=== PATIENT | female | born 2005 | race Two or more races ===

== ENCOUNTER 2024-10-08 20:05 | Observation (INO) | payer MEDICAID, SELFPAY ==
[2024-10-08 20:14] VITALS: BP 135/69; PULSE 85; RESP 18; RESP 98; TEMP 37
[2024-10-08 20:17] VITALS: TEMP 37; BMI 35.8
[2024-10-08 20:54] LABS: ROM Kit Lot # 57807112
[2024-10-08 20:55] LABS: ROM Swab Mixed By: DAVIH1; Rupture of Fetal Membranes Negative (Negative); Swb Mxed in Solvent 1 min? Yes
== END 2024-10-08 21:03 | disposition home or self-care (01) ==
PROVIDERS: Admitting Provider Obstetrics & Gynecology; PCP Family Medicine; Visit Provider Obstetrics & Gynecology
DX: Z34.83 Encounter for supervision of other normal pregnancy, third trimester (principal); Z3A.30 30 weeks gestation of pregnancy
CPT/HCPCS: 59899; 84112

== ENCOUNTER 2024-11-02 09:34 | Outpatient (CLI) | payer MEDICAID, SELFPAY ==
[2024-11-02] VITALS (37 sets, daily range): BP systolic 120–144; BP diastolic 77–99; PULSE 70–102; RESP 18–98; TEMP 36.8; O2SAT 94–100; BMI 37.0
[2024-11-02 10:53] LABS: Collection Type, Urine Clean Catch; RBC,Urine 0 /hpf (0-3)
[2024-11-02 11:00] LABS: Basophils % (Auto) 0 % (0-2.5); Eosinophils # (Auto) 0.3 Thou/mm3 (0.0-0.5); Eosinophils % (Auto) 5 % (0-10); Hematocrit 30.5 % (36.0-46.0); Hemoglobin 10.4 g/dL (12.0-16.0); Immature Granulocytes % (Auto) 1 % (0-0); Immature Granulocytes Auto 0.07 Thou/mm3 (0.00-0.00); Lymphocytes # (Auto) 1.4 Thou/mm3 (1.0-4.8); Lymphocytes % (Auto) 24 % (10-50); Mean Corpuscular HGB Conc 34.1 g/dl (31.0-37.0); Mean Corpuscular Hemoglobin 26.6 pg (25.0-35.0); Mean Corpuscular Volume 78 fL (80-100); Monocytes # (Auto) 0.4 Thou/mm3 (0.0-0.8); Monocytes % (Auto) 7 % (0-12); Neutrophils # (Auto) 3.8 Thou/mm3 (1.8-7.7); Neutrophils % (Auto) 62 % (37-80); Nucleated Red Blood Cell % 0 /100 WBC (0); Platelet Count 140 Thou/mm3 (140-440); RDW Standard Deviation 40.6 fL (36.4-46.3); Red Blood Count 3.91 Miln/mm3 (4.00-5.20)
[2024-11-02 11:07] LABS: Bacteria,Urine Rare; Bilirubin,Urine Negative (Negative); Blood,Urine Negative (Negative); Clarity,Urine Turbid (Clear/Hazy); Color,Urine Yellow (Lt Yel-Yel); Glucose, Urine Negative (Negative); Ketones,Urine Negative (Negative); Leukocyte Esterase,Urine Positive (Negative); Nitrite,Urine Negative (Negative); PH,Urine 6.5 (5.0-7.0); Protein,Urine Negative (Neg - Trace); Specific Gravity,Urine 1.016 (1.001-1.035); Squamous Epithelial Cell,Urine 33 /hpf (0-5); Urobilinogen,Urine Negative mg/dL (0.0-1.0); WBC,Urine 7 /hpf (0-5)
[2024-11-02 11:15] LABS: Alanine Aminotransferase < 7 U/L (10-49); Albumin, Serum 3.7 gm/dL (3.5-5.0); Albumin/Globulin Ratio 1.4 (1.2-2.2); Alkaline Phosphatase 101 U/L (46-116); Anion Gap 6 (7-16); Aspartate Amino Transferase 10 U/L (0-34); BUN/Creatinine Ratio 12 Ratio (12-20); Bilirubin,Total 0.3 mg/dL (0.3-1.2); Blood Urea Nitrogen 6 mg/dL (9-23); Calcium 9.1 mg/dL (8.3-10.6); Calcium (Corrected) 9.3 mg/dL (8.5-10.1); Chloride 107 mMol/L (98-107); Creatinine (Component) 0.5 mg/dL (0.6-1.3); Estimated Creatinine Clearance 202.3 mL/min (>60); Fibrinogen 470 mg/dL (175-375); Globulin 2.6 gm/dL (2.3-3.5); Glucose 107 mg/dL (74-106); Osmolality,Calculated 269 (275-295); Partial Thromboplastin Time 29.1 Seconds (22.0-36.0); Potassium 3.6 mMol/L (3.4-5.1); Prothrombin Time 11.1 Seconds (9.0-12.2); Sodium 136 mMol/L (136-145); Total Protein 6.3 gm/dL (5.7-8.2); eGFR > 60 See Note
[2024-11-02 11:16] LABS: Creatinine,Random Urine 62 mg/dL (30-125); Protein Total, Random Urine 18 mg/dL (1-14)
== END 2024-11-02 12:04 | disposition home or self-care (01) ==
LOC: S4S1 09:37 → S4SX 09:37
PROVIDERS: Referring Provider Student in an Organized Health Care Education/Training Program; Visit Provider Student in an Organized Health Care Education/Training Program
DX: O26.893 Other specified pregnancy related conditions, third trimester (principal); R03.0 Elevated blood-pressure reading, without diagnosis of hypertension; Z3A.33 33 weeks gestation of pregnancy
CPT/HCPCS: 36415; 59025; 80053; 81001; 82570; 84156; 84550; 85025; 85384; 85610; 85730

== ENCOUNTER 2024-11-09 09:07 | Outpatient (CLI) | payer MEDICAID, SELFPAY ==
[2024-11-09] VITALS (29 sets, daily range): BP systolic 127–140; BP diastolic 81–95; PULSE 72–108; RESP 20–98; TEMP 36.8; O2SAT 97–100; BMI 37.5
[2024-11-09 09:50] LABS: Collection Type, Urine Clean Catch
[2024-11-09 09:58] LABS: Bacteria,Urine Rare; Bilirubin,Urine Negative (Negative); Blood,Urine Negative (Negative); Color,Urine Lt-Yellow (Lt Yel-Yel); Glucose, Urine Negative (Negative); Hyaline Casts,Urine < 1 /hpf (0-1); Ketones,Urine Negative (Negative); Leukocyte Esterase,Urine Positive (Negative); Nitrite,Urine Negative (Negative); Protein,Urine Negative (Neg - Trace); RBC,Urine 6 /hpf (0-3); Specific Gravity,Urine 1.006 (1.001-1.035); Squamous Epithelial Cell,Urine 48 /hpf (0-5); Urobilinogen,Urine Negative mg/dL (0.0-1.0); WBC,Urine 15 /hpf (0-5)
[2024-11-09 10:14] LABS: Clarity,Urine Hazy (Clear/Hazy)
[2024-11-09 10:30] LABS: Basophils % (Auto) 1 % (0-2.5); Eosinophils # (Auto) 0.4 Thou/mm3 (0.0-0.5); Eosinophils % (Auto) 6 % (0-10); Hematocrit 28.8 % (36.0-46.0); Hemoglobin 10.1 g/dL (12.0-16.0); Immature Granulocytes % (Auto) 2 % (0-0); Immature Granulocytes Auto 0.13 Thou/mm3 (0.00-0.00); Lymphocytes # (Auto) 1.4 Thou/mm3 (1.0-4.8); Lymphocytes % (Auto) 21 % (10-50); Mean Corpuscular HGB Conc 35.1 g/dl (31.0-37.0); Mean Corpuscular Hemoglobin 26.9 pg (25.0-35.0); Mean Corpuscular Volume 77 fL (80-100); Monocytes # (Auto) 0.5 Thou/mm3 (0.0-0.8); Monocytes % (Auto) 8 % (0-12); Neutrophils # (Auto) 4.1 Thou/mm3 (1.8-7.7); Neutrophils % (Auto) 63 % (37-80); Nucleated Red Blood Cell % 0 /100 WBC (0); Platelet Count 143 Thou/mm3 (140-440); Red Blood Count 3.76 Miln/mm3 (4.00-5.20); White Blood Count 6.5 Thou/mm3 (3.6-11.0)
[2024-11-09 10:47] LABS: Fibrinogen 462 mg/dL (175-375); Partial Thromboplastin Time 29.3 Seconds (22.0-36.0); Prothrombin Time 10.9 Seconds (9.0-12.2)
[2024-11-09 11:05] LABS: Alanine Aminotransferase < 7 U/L (10-49); Albumin, Serum 3.7 gm/dL (3.5-5.0); Albumin/Globulin Ratio 1.5 (1.2-2.2); Alkaline Phosphatase 114 U/L (46-116); Anion Gap 10 (7-16); Aspartate Amino Transferase 10 U/L (0-34); BUN/Creatinine Ratio 15 Ratio (12-20); Bilirubin,Total 0.3 mg/dL (0.3-1.2); Blood Urea Nitrogen 6 mg/dL (9-23); Calcium 8.6 mg/dL (8.3-10.6); Calcium (Corrected) 8.8 mg/dL (8.5-10.1); Carbon Dioxide 21.7 mMol/L (20.0-31.0); Chloride 109 mMol/L (98-107); Creatinine (Component) 0.4 mg/dL (0.6-1.3); Estimated Creatinine Clearance 254.8 mL/min (>60); Globulin 2.4 gm/dL (2.3-3.5); Glucose 114 mg/dL (74-106); LDH (Lactate Dehydrogenase) 135 U/L (120-246); Osmolality,Calculated 279 (275-295); Potassium 3.8 mMol/L (3.4-5.1); Sodium 141 mMol/L (136-145); Total Protein 6.1 gm/dL (5.7-8.2); Uric Acid 3.6 mg/dL (3.1-7.8); eGFR > 60 See Note
[2024-11-09] MEDS: LABETALOL 100 MG TABLET 200 MG PO (11:29)
[2024-11-09 11:32] LABS: Creatinine,Random Urine 22 mg/dL (30-125); Protein Total, Random Urine 15 mg/dL (1-14)
== END 2024-11-09 11:30 | disposition home or self-care (01) ==
LOC: S4S1 09:08 → S4SX 09:08
PROVIDERS: Referring Provider Student in an Organized Health Care Education/Training Program; Visit Provider Student in an Organized Health Care Education/Training Program
DX: Z34.83 Encounter for supervision of other normal pregnancy, third trimester (principal); Z36.89 Encounter for other specified antenatal screening; Z3A.34 34 weeks gestation of pregnancy
CPT/HCPCS: 36415; 59025; 80053; 81001; 82570; 83615; 84156; 84550; 85025; 85384; 85610; 85730; A9270

== ENCOUNTER 2024-11-25 15:46 | Outpatient (CLI) | payer MEDICAID, SELFPAY ==
[2024-11-25] VITALS (22 sets, daily range): BP systolic 123–139; BP diastolic 69–74; PULSE 84–104; RESP 20–96; TEMP 36.9; O2SAT 96–98; BMI 37.4
--- NOTE | 2024-11-25 15:57 | XR_ITS ---
Examination: Biophysical profile, ultrasound Date and time of exam: November 26, 2023, 1626 hours INDICATIONS: Diagnosis gestational hypertension Technique: Multiple transabdominal sonographic images of the pelvis abdomen obtained. Attention is directed to the breathing movement, gross body movement, amniotic fluid volume and tone. Findings: Amniotic fluid index 9.9 cm Total biophysical profile is 8 of 8. breathing movement is 2. Gross body movement is 2. tone is 2. Qualitative amniotic fluid volume is 2 Impression: Biophysical profile is 8 of 8.
== END 2024-11-25 17:45 | disposition home or self-care (01) ==
LOC: S4S1 15:47 → S4SX 15:48
PROVIDERS: Referring Provider Obstetrics & Gynecology; Visit Provider Obstetrics & Gynecology
DX: Z34.83 Encounter for supervision of other normal pregnancy, third trimester (principal); Z36.9 Encounter for antenatal screening, unspecified; Z3A.37 37 weeks gestation of pregnancy
CPT/HCPCS: 59025; 76819

== ENCOUNTER 2024-11-26 20:43 | Inpatient (IN) | payer MEDICAID, SELFPAY ==
[2024-11-26] VITALS (10 sets, daily range): BP systolic 120–162; BP diastolic 68–94; PULSE 72–89; RESP 18; TEMP 36.9–37.2; BMI 37.4
[2024-11-26 21:24] LABS: ROM Kit Lot # 57807112; ROM Swab Mixed By: PC; Swb Mxed in Solvent 1 min? Yes
[2024-11-26 21:25] LABS: Rupture of Fetal Membranes Positive (Negative)
--- NOTE | 2024-11-26 21:37 | PD.LDHP ---
Documentation for date of: 11/26/24 OB Labor/Induct. HPI History of Present Illness Chief complaint: contractions and leaking : 2 Para: 1 Term pregnancies: 1 pregnancies: 0 Living children: 1 History of Abortions: Spontaneous and Elective: 0 History of Vaginal deliveries: 1 History of sections: No History of : No TAYLOR: 12/15/24 Gestational Age (weeks): 37 Gestational Age (days): 2 History of present illness: 19 y/o IUP 37w2d by best date present to [facility] for contraction and reported leaking begining at 20:43 with Amniosure positive. PNC FHCN. No bleeding. Normal movement. History of Present Dating criteria: LMP confirmed by 1st trimester US Adequate Care: Yes Obstetrical complications: none Medical complications: cardiovascular (borderline chronic HTN) Review of Systems Review of Systems Narrative Review of Systems: No CP, SOB, Cough, fever, headache, change in vision, RUQ pain or LE pain. Allergic/Immunologic Comments: NKDA Past Medical History Past Medical History CARDIAC: Positive Hypertension (Borderline chronic ) REPRODUCTIVE: Positive Previous Pregnancies (Prior Fullterm complicated by HTN) Family History OTHER FAMILY HX: DM, HTN Surgical History SURGICAL: Negative Section Social History SMOKING STATUS: Never smoker ALCOHOL: Never Meds Home Medications and Allergies Home Medications ?Medication ?Instructions ?Recorded ?Confirmed ?Type vitamins no.144-folic 1 tab PO DAILY 11/05/20 11/26/24 History acid 400 mcg chewable tablet () Allergies Allergy/AdvReac Type Severity Reaction Status Date / Time No Known Allergies Allergy Verified 11/26/24 20:52 OB Exam Physical Exam Vital signs: Temp Pulse Resp BP 98.4 F 72 18 125/77 11/26/24 20:46 11/26/24 21:33 11/26/24 20:46 11/26/24 21:33 Routine HEENT Exam Comments: Oropharnyx and sclera clear. Routine Respiratory Exam Comments: CTA B/L Routine Cardiovascular Exam Comments: RRR Routine Abdominal Exam Comments: Gravid consistent with EFW 7 lbs Detailed Labor and Delivery Exam Dilation (cm): 2 Effacement (%): 60 station: -3 Presentation: Vertex Membranes: ruptured Comments: Per RN exam Routine Extremities Exam Comments: Nontender or edema. Routine Skin Exam Comments: No rashes or lesions Routine Neurological Exam Comments: No focal deficits OB Results Impressions Impression: IUP 37w2d by best dates. SROM Early Labor Anticipate Informed consent obtained. Pt aware of the risks, complications, alternatives and benefits of OVD and C/S and agrees with these modes of delivery if indicated.
[2024-11-26] MEDS: RINGERS LACTATED 1000 ML 1,000 ML 125 ML IV (22:23)
[2024-11-26] MEDS: Ampicillin Inj 2,000 MG in SODIUM CHLORIDE 0.9% (POP) 100 ML 200 MG IV (22:35)
[2024-11-26 23:16] LABS: Collection Type, Urine Clean Catch
[2024-11-26 23:21] LABS: Basophils % (Auto) 0 % (0-2.5); Eosinophils # (Auto) 0.3 Thou/mm3 (0.0-0.5); Eosinophils % (Auto) 3 % (0-10); Hematocrit 33.3 % (36.0-46.0); Hemoglobin 11.5 g/dL (12.0-16.0); Immature Granulocytes % (Auto) 1 % (0-0); Immature Granulocytes Auto 0.08 Thou/mm3 (0.00-0.00); Lymphocytes # (Auto) 1.8 Thou/mm3 (1.0-4.8); Lymphocytes % (Auto) 22 % (10-50); Mean Corpuscular HGB Conc 34.5 g/dl (31.0-37.0); Mean Corpuscular Hemoglobin 25.8 pg (25.0-35.0); Mean Corpuscular Volume 75 fL (80-100); Monocytes # (Auto) 0.6 Thou/mm3 (0.0-0.8); Monocytes % (Auto) 7 % (0-12); Neutrophils # (Auto) 5.5 Thou/mm3 (1.8-7.7); Neutrophils % (Auto) 66 % (37-80); Nucleated Red Blood Cell % 0 /100 WBC (0); Platelet Count 158 Thou/mm3 (140-440); RDW Standard Deviation 38.7 fL (36.4-46.3); Red Blood Count 4.45 Miln/mm3 (4.00-5.20); White Blood Count 8.2 Thou/mm3 (3.6-11.0)
[2024-11-26 23:33] LABS: Bilirubin,Urine Negative (Negative); Blood,Urine 2+ (Negative); Clarity,Urine Turbid (Clear/Hazy); Color,Urine Lt-Yellow (Lt Yel-Yel); Glucose, Urine Negative (Negative); Ketones,Urine 2+ (Negative); Leukocyte Esterase,Urine Positive (Negative); Nitrite,Urine Negative (Negative); PH,Urine 7.5 (5.0-7.0); Protein,Urine Negative (Neg - Trace); RBC,Urine 4 /hpf (0-3); Specific Gravity,Urine 1.012 (1.001-1.035); Squamous Epithelial Cell,Urine 14 /hpf (0-5); Urobilinogen,Urine Negative mg/dL (0.0-1.0); WBC,Urine 21 /hpf (0-5)
[2024-11-26 23:42] LABS: Partial Thromboplastin Time 30.2 Seconds (22.0-36.0); Prothrombin Time 10.8 Seconds (9.0-12.2)
[2024-11-26 23:49] LABS: Fibrinogen 650 mg/dL (175-375)
[2024-11-26 23:54] LABS: Alanine Aminotransferase < 7 U/L (10-49); Albumin, Serum 4.2 gm/dL (3.5-5.0); Anion Gap 14 (7-16); Aspartate Amino Transferase 18 U/L (0-34); BUN/Creatinine Ratio 12 Ratio (12-20); Bilirubin,Total 0.5 mg/dL (0.3-1.2); Blood Urea Nitrogen 6 mg/dL (9-23); Calcium 9.3 mg/dL (8.3-10.6); Carbon Dioxide 19.8 mMol/L (20.0-31.0); Chloride 109 mMol/L (98-107); Creatinine (Component) 0.5 mg/dL (0.6-1.3); Estimated Creatinine Clearance 203.3 mL/min (>60); Glucose 75 mg/dL (74-106); Osmolality,Calculated 281 (275-295); Potassium 3.9 mMol/L (3.4-5.1); Sodium 143 mMol/L (136-145); Total Protein 6.9 gm/dL (5.7-8.2); Uric Acid 5.1 mg/dL (3.1-7.8); eGFR > 60 See Note
[2024-11-26 23:55] LABS: Albumin/Globulin Ratio 1.6 (1.2-2.2); Alkaline Phosphatase 157 U/L (46-116); Calcium (Corrected) 9.3 mg/dL (8.5-10.1); Globulin 2.7 gm/dL (2.3-3.5)
[2024-11-27] VITALS (230 sets, daily range): BP systolic 105–168; BP diastolic 53–106; PULSE 67–142; RESP 16–18; TEMP 36.7–37.1; O2SAT 92–99
[2024-11-27 00:01] LABS: Syphilis Nonreactive (Nonreactive)
[2024-11-27 01:31] LABS: Creatinine,Random Urine 42 mg/dL (30-125); Protein Total, Random Urine 17 mg/dL (1-14)
[2024-11-27] MEDS: Ampicillin Inj 1,000 MG in SODIUM CHLORIDE 0.9% (Popper) 50 ML 50 MG IV ×6 (02:10→22:11)
[2024-11-27] MEDS: OXYTOCIN in NS 30 units 30 UNIT/500 ML BAG IV (07:00)
[2024-11-27] MEDS: ACETAMINOPHEN 325 MG TABLET 650 MG PO (08:53)
[2024-11-27] MEDS: RINGERS LACTATED 1000 ML 1,000 ML 125 ML IV (10:02)
[2024-11-27] MEDS: LABETALOL 100 MG TABLET 200 MG PO ×2 (11:49→21:08)
[2024-11-27] MEDS: OXYTOCIN INJ 10 UNIT/ML VIAL IM (19:21)
[2024-11-27] MEDS: MISOPROSTOL 200 mCg TABLET 800 MCG PR (19:26)
[2024-11-27] MEDS: TRANEXAMIC ACID 1,000 MG IVPB 1,000 MG/100 ML BAG 200 MG IV ×2 (19:26→20:04)
[2024-11-27] MEDS: CARBOPROST TROMETH INJ 250 MCG/ML VIAL IM (19:29)
[2024-11-27] MEDS: MINERAL OIL 30 ML UDC TOP (19:31)
[2024-11-27] MEDS: LOPERAMIDE 2 MG CAPSULE 4 MG PO (20:04)
--- NOTE | 2024-11-27 20:08 | PD.LDDELS ---
Data ([facility]) Data Hx Section: No : 2 Term: 1 : 0 Livin Abortions: Spontaneous & Theraputic: 0 Delivery Data ([facility]) Labor Data Initiation of labor: Induction Induction/Augmentation Agent: Pitocin ROM date: 11/26/24 ROM time: 20:45 Amniotic membrane rupture type: Spontaneous Amniotic fluid description: Clear Delivery Data EDC: 11/14/24 EDC calculated by:: LMP/early US confirmation Date of arrival to unit: 11/26/24 Time of arrival to unit: 20:43 Onset of labor date: 11/27/24 Onset of labor time: 18:00 Complete dilation date: 11/27/24 Complete dilation time: 19:00 delivery date: 11/27/24 delivery time: 19:15 Gestational age (weeks): 37 Gestational age (days): 3 Placenta delivery date: 11/27/24 Placenta delivery time: 19:22 Stage 1 total time: Labor - Stage 1 Duration 1 hours and 0 minutes Delivered by: toya saldivar Delivery nurse: radha Hull nurse: velma nicu Director Of Campus Recreation at delivery: No Support person(s) at delivery: father of baby roger Other staff at delivery: kanu rn, 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 Method Delivery method: Normal Vaginal Delivery Presentation: Vertex position: OA Anesthesia Type Anesthesia Type: Epidural Delivery Room Medications Delivery room medications: Pitocin 10 u IM, Pitocin 20 u IV, Hemabate 250 mcg IM, Cytotec 800 HI and other (TXA x2) Placenta Placenta delivery description: Spontaneous Cord blood sent to lab: Yes cord blood collection: Cord Blood Type Episiotomy Episiotomy description: 1 degree labia laceration and labial tear with repair Lacerations #1: Vaginal: 1st degree Periurethral: small PU repaired, R labial tear Perineal repair Sutures used for repair: 3.0 Vicryl (2.0 vicryl) EBL Estimated blood loss (ml): 650 Umbilical Cord cord description: 3 Vessels Complications Complications: Uterus boggy. Firming up phenomenon with massage. Remove clots from lower segment. Patient patient was given 800 of Cytotec rectally. Followed by Pitocin 10 units IM and a 500 cc bolus of 20u pitocin in 1000 cc and TXA x 2. Hemabate was also given. Fundus firm in bleeding slowing down after the Hemabate. Data ([facility]) Aladdin Data Aladdin's gender: Female Identification band number: [id number] weight (gms): 3490 g Weight (pounds): 7 lbs and 11.1 ozs 1 minute: 9 5 minutes: 9
[2024-11-27] MEDS: BENZO/LANO/ALOE (Dermoplast) 60 GM CAN 1 SPRAY TOP (20:16)
[2024-11-27] MEDS: ONDANSETRON INJ 2 MG/ML INJ 2 ML 4 MG IVP (20:22)
[2024-11-27] MEDS: IBUPROFEN TAB 400 MG TABLET 800 MG PO (21:28)
[2024-11-27] MEDS: OXYTOCIN in NS 20 units 20 UNIT/1,000 ML BAG 125 UNIT IV (22:12)
[2024-11-28] VITALS (12 sets, daily range): BP systolic 102–130; BP diastolic 65–82; PULSE 83–100; RESP 16–18; TEMP 36.6–36.9; O2SAT 96–98
[2024-11-28] MEDS: Ampicillin Inj 1,000 MG in SODIUM CHLORIDE 0.9% (Popper) 50 ML 50 MG IV ×3 (02:04→10:08)
[2024-11-28 02:20] LABS: Basophils % (Auto) 0 % (0-2.5); Eosinophils % (Auto) 0 % (0-10); Hematocrit 25.1 % (36.0-46.0); Immature Granulocytes % (Auto) 1 % (0-0); Immature Granulocytes Auto 0.05 Thou/mm3 (0.00-0.00); Lymphocytes # (Auto) 0.7 Thou/mm3 (1.0-4.8); Lymphocytes % (Auto) 7 % (10-50); Mean Corpuscular HGB Conc 34.7 g/dl (31.0-37.0); Mean Corpuscular Hemoglobin 26.2 pg (25.0-35.0); Mean Corpuscular Volume 76 fL (80-100); Monocytes # (Auto) 0.8 Thou/mm3 (0.0-0.8); Monocytes % (Auto) 7 % (0-12); Neutrophils # (Auto) 8.9 Thou/mm3 (1.8-7.7); Neutrophils % (Auto) 85 % (37-80); Nucleated Red Blood Cell % 0 /100 WBC (0); Platelet Count 118 Thou/mm3 (140-440); RDW Standard Deviation 39.5 fL (36.4-46.3); Red Blood Count 3.32 Miln/mm3 (4.00-5.20); White Blood Count 10.5 Thou/mm3 (3.6-11.0)
[2024-11-28 02:24] LABS: Hemoglobin 8.7 g/dL (12.0-16.0)
[2024-11-28] MEDS: OXYTOCIN in NS 20 units 20 UNIT/1,000 ML BAG 125 UNIT IV (05:29)
[2024-11-28] MEDS: LABETALOL 100 MG TABLET 200 MG PO ×2 (08:23→21:35)
[2024-11-28] MEDS: ACETAMINOPHEN 325 MG TABLET 650 MG PO (08:23)
[2024-11-28] MEDS: DOCUSATE SOD 100 MG CAPSULE PO ×2 (08:23→21:36)
[2024-11-28 13:20] LABS: Basophils % (Auto) 0 % (0-2.5); Eosinophils # (Auto) 0.1 Thou/mm3 (0.0-0.5); Eosinophils % (Auto) 1 % (0-10); Hematocrit 25.9 % (36.0-46.0); Hemoglobin 8.8 g/dL (12.0-16.0); Immature Granulocytes % (Auto) 1 % (0-0); Immature Granulocytes Auto 0.08 Thou/mm3 (0.00-0.00); Lymphocytes # (Auto) 0.9 Thou/mm3 (1.0-4.8); Lymphocytes % (Auto) 11 % (10-50); Mean Corpuscular Hemoglobin 26.4 pg (25.0-35.0); Mean Corpuscular Volume 78 fL (80-100); Monocytes # (Auto) 0.7 Thou/mm3 (0.0-0.8); Monocytes % (Auto) 9 % (0-12); Neutrophils # (Auto) 5.9 Thou/mm3 (1.8-7.7); Neutrophils % (Auto) 77 % (37-80); Nucleated Red Blood Cell % 0 /100 WBC (0); Platelet Count 123 Thou/mm3 (140-440); RDW Standard Deviation 42.3 fL (36.4-46.3); Red Blood Count 3.33 Miln/mm3 (4.00-5.20); White Blood Count 7.6 Thou/mm3 (3.6-11.0)
--- NOTE | 2024-11-28 13:29 | ESPR_ITS ---
Subjective Subjective Interval history: No complaints of pain. Denies dizziness. Bonding and breast-feeding Exam Vital Signs Temp Pulse Resp BP Pulse Ox O2 Del Method 98.2 F 88 16 102/65 97 Room Air 11/28/24 10:05 11/28/24 10:05 11/28/24 10:05 11/28/24 10:05 11/28/24 10:11/28/24 07:55 Narrative Exam Vital signs are stable afebrile. Patient's H&H decreased from hemoglobin of 11 to hemoglobin of 8. Fundus firm below the umbilicus. Perineum is intact no swelling or signs of infection patient had a right labial tear that is healing. Small lochia. Uterus well involuted. Negative Homans' sign. 2+ DTRs. Patient's EBL was 650 after delay Objective Labs 11/28/24 02:08 11/26/24 22:14 Labs: Laboratory Results - last 24 hr 11/26/24 11/28/24 22:15 02:08 WBC 10.5 RBC 3.32 L Hgb 8.7 L D Hct 25.1 L MCV 76 L MCH 26.2 MCHC 34.7 RDW Std Deviation 39.5 Plt Count 118 L D Neut % (Auto) 85 H Lymph % (Auto) 7 L [place] % (Auto) 7 Eos % (Auto) 0 Baso % (Auto) 0 Neut # (Auto) 8.9 H Lymph # (Auto) 0.7 L [place] # (Auto) 0.8 Eos # (Auto) 0.0 Baso # (Auto) 0.0 Immature Gran # (Auto) 0.05 H Absolute Nucleated RBC 0.00 Immature Gran % 1 H Nucleated RBC % 0 Blood Type O Positive Antibody Screen NEGATIVE Crossmatch See Detail Blood Bank Wristband ID Yes Assessment & Plan Problem List (1) hemorrhage, delivered: Status: Acute Plan Comment Plan Comment: Patient was transfused x 1 unit. CBC pending. Discontinue antibiotics. Increase fluids. Tylenol ibuprofen for pain. And patient will take iron twice daily. And discharged home tomorrow. And I discussed comfort measures for her lacerations Time Spent With Patient Time: Total time spent is greater than 50% in coordination of care (as documented) at patient's floor/unit and/or counseling patient:
[2024-11-28] MEDS: IBUPROFEN TAB 400 MG TABLET 800 MG PO (19:31)
[2024-11-28] MEDS: IRON DEXTRAN 50 MG/ML 100 MG IM (22:22)
[2024-11-29 04:15] VITALS: BP 105/67; PULSE 80; RESP 18; TEMP 36.7; O2SAT 97
[2024-11-29] MEDS: IBUPROFEN TAB 400 MG TABLET 800 MG PO (04:15)
[2024-11-29 05:35] LABS: Basophils % (Auto) 1 % (0-2.5); Eosinophils # (Auto) 0.3 Thou/mm3 (0.0-0.5); Eosinophils % (Auto) 4 % (0-10); Hematocrit 25.6 % (36.0-46.0); Immature Granulocytes % (Auto) 2 % (0-0); Immature Granulocytes Auto 0.16 Thou/mm3 (0.00-0.00); Lymphocytes # (Auto) 1.4 Thou/mm3 (1.0-4.8); Lymphocytes % (Auto) 21 % (10-50); Mean Corpuscular Hemoglobin 27.3 pg (25.0-35.0); Mean Corpuscular Volume 80 fL (80-100); Monocytes # (Auto) 0.7 Thou/mm3 (0.0-0.8); Monocytes % (Auto) 10 % (0-12); Neutrophils # (Auto) 4.3 Thou/mm3 (1.8-7.7); Neutrophils % (Auto) 63 % (37-80); Nucleated Red Blood Cell % 0 /100 WBC (0); Platelet Count 124 Thou/mm3 (140-440); RDW Standard Deviation 44.2 fL (36.4-46.3); Red Blood Count 3.19 Miln/mm3 (4.00-5.20); White Blood Count 6.9 Thou/mm3 (3.6-11.0)
[2024-11-29 05:59] LABS: Hemoglobin 8.7 g/dL (12.0-16.0)
[2024-11-29 07:50] VITALS: BP 128/84; PULSE 81; RESP 18; TEMP 36.9; O2SAT 97
--- NOTE | 2024-11-29 08:04 | ESPR_ITS ---
Subjective Subjective Interval history: no complaints of dizziness, no c/o pain Exam Vital Signs Temp Pulse Resp BP Pulse Ox O2 Del Method 98.1 F 80 18 105/67 97 Room Air 11/29/24 04:15 11/29/24 04:15 11/29/24 04:15 11/29/24 04:15 11/29/24 04:15 11/29/24 04:15 Narrative Exam fundus firm, below umb. small lochia. perineum intact, no swelling. labial laceration healing, negative homans Objective Labs 11/29/24 04:43 11/26/24 22:14 Labs: Laboratory Results - last 24 hr 11/26/24 11/28/24 11/29/24 22:15 12:36 04:43 WBC 7.6 6.9 RBC 3.33 L 3.19 L Hgb 8.8 L 8.7 L Hct 25.9 L 25.6 L MCV 78 L 80 MCH 26.4 27.3 MCHC 34.0 34.0 RDW Std Deviation 42.3 44.2 Plt Count 123 L 124 L Neut % (Auto) 77 63 Lymph % (Auto) 11 21 [place] % (Auto) 9 10 Eos % (Auto) 1 4 Baso % (Auto) 0 1 Neut # (Auto) 5.9 4.3 Lymph # (Auto) 0.9 L 1.4 [place] # (Auto) 0.7 0.7 Eos # (Auto) 0.1 0.3 Baso # (Auto) 0.0 0.0 Immature Gran # (Auto) 0.08 H 0.16 H Absolute Nucleated RBC 0.00 0.00 Immature Gran % 1 H 2 H Nucleated RBC % 0 0 Crossmatch See Detail Assessment & Plan Problem List (1) hemorrhage, delivered: Status: Acute Assessment Comment Assessment comment: 24 hr pp Plan Comment Plan Comment: discharger home with baby. iron bid #60. increase iron food. tylenol or ibuprophen as needed for discomfort. continue labetolol 100 bid at home. f/u 1 week bp check. review PIH symptom and ER precaution with parameter. discuss s/s of infection and danger s/s Time Spent With Patient Time: Total time spent is greater than 50% in coordination of care (as documented) at patient's floor/unit and/or counseling patient:
--- NOTE | 2024-11-29 08:09 | ESDS_ITS ---
DS: Providers Provider Date of admission: 11/26/24 21:49 Primary care physician: Physician No Primary/Family Admitting Provider: Popeye Carl MD Attending Provider on Admission: Alyssa Vazquez CNM Consults: 11/27/24 21:18 Referral Routine Comment: Attending Provider on DC: Alyssa Vazquez CNM Discharging Provider: Alyssa Vazquez CNM DS: Diagnosis Problem List Completed Was Problem List Reviewed/Reconciled?: Yes Summary/Hosp Course Brief History: 19 y/o IUP 37w2d by best date present to [facility] for contraction and reported leaking begining at 20:43 with Amniosure positive. PNC FHCN. No bleeding. Normal movement. Peripartum Data Delivery Method: Normal Vaginal Delivery Episiotomy Description: 1 degree labia laceration and labial tear with repair complications: uterine atony (transfuse 1 unit and iv iron x1) Time Spent with Patient Time attestation: Total time spent providing and/or coordinating discharge services: Exam Vital Signs Temp Pulse Resp BP Pulse Ox O2 Del Method 98.1 F 80 18 105/67 97 Room Air 11/29/24 04:15 11/29/24 04:15 11/29/24 04:15 11/29/24 04:15 11/29/24 04:15 11/29/24 04:15 Discharge Plan Plan Patient Disposition: HOME (Self Care) Patient condition on transfer: Stable Prescriptions/Referrals Prescriptions/Med Rec: New ferrous sulfate 325 mg (65 mg iron) tablet 325 mg PO BID Qty: 60 2RF No Action 400 mcg Tablet,Chewable 1 tab PO DAILY labetalol 200 mg tablet 200 mg PO QDAY Qty: 30 0RF Referrals: No Primary/Family,Physician [Primary Care Provider] - Patient/Caregiver Discharge Instructions Discharge Activity: resume usual activities Print Language: Setswana Activity Restrictions/Additional Instructions: Recommend baby. Continue vitamins and iron. Tylenol ibuprofen for pain. Discussed danger signs and symptoms and ER precautions with parameters. Discussed signs and symptoms of infection. Comfort measures for labial laceration. Return in a week for BP check and continue labetalol 100 twice daily. I discussed PIH precautions with the patient. Increase fluids. And iron foods Stand Alone Forms: [facility] Award Info., Patient Portal Info Letter Discharge Order Discharge Orders: Discharge (Routine); Ordered 11/29/24 Ordered By: Alsysa Vazquez Planned Discharge Date 11/29/24
[2024-11-29 08:12] VITALS: BP 128/84; PULSE 81
[2024-11-29] MEDS: LABETALOL 100 MG TABLET 200 MG PO (08:12)
[2024-11-29] MEDS: DOCUSATE SOD 100 MG CAPSULE PO (08:13)
[2024-11-29 11:00] VITALS: BP 129/85; PULSE 73; RESP 18; O2SAT 98
== END 2024-11-29 13:21 | disposition home or self-care (01) | DRG 560 ==
LOC: S4SX 11-27 08:50 → S4NX 11-27 22:50
PROVIDERS: Admitting Provider Specialist; Visit Provider Advanced Practice Midwife
DX: O16.4 Unspecified maternal hypertension, complicating childbirth (principal); Z37.0 Single live birth; Z3A.37 37 weeks gestation of pregnancy; O70.0 First degree perineal laceration during delivery; O72.1 Other immediate postpartum hemorrhage
CPT/HCPCS: 36415; 59025; 80053; 81001; 82570; 83540; 84112; 84156; 84550; 85025; 85384; 85610; 85730; 86780; 86850; 86900; 86901; 86923; J0290; J1750; J2405; J2590; J2795; J3490; J7050; J7120; P9016; S0191; A9270